=== PATIENT | female | born 1975 | race Caucasian/White ===

== ENCOUNTER 2023-02-04 11:38 | Emergency (ER) | payer OTHER ==
[~2023-02-04] VITALS: Ht 172.7 cm; Wt 114.0 kg
[2023-02-04] MEDS ORDERED: KETOROLAC 60MG/2ML VIAL IM STA (15:47)
[2023-02-04] MEDS ORDERED: IBUPROFEN 600MG TABLET PO STA (16:42)
[2023-02-04] MEDS ORDERED: CLONIDINE 0.1MG TABLET PO NR (17:00)
[2023-02-04] MEDS ORDERED: HYDR-4001 MT (18:14)
[2023-02-04] MEDS ORDERED: NAPR-681 PO (18:14)
[2023-02-04 18:17] VITALS: BP 190/104
== END 2023-02-04 18:27 | disposition home or self-care (01) ==
LOC: ER 11:38
DX: S80.01XA Contusion of right knee, initial encounter (principal); S00.83XA Contusion of other part of head, initial encounter; S10.83XA Contusion of other specified part of neck, initial encounter; R03.0 Elevated blood-pressure reading, without diagnosis of hypertension; M47.892 Other spondylosis, cervical region; V49.59XA Passenger injured in collision with other motor vehicles in traffic accident, initial encounter; Y93.89 Activity, other specified; Y92.488 Other paved roadways as the place of occurrence of the external cause
CPT/HCPCS: 72100; 72125; 73562; 81025; 99284; J1885; Z7610